=== PATIENT | male | born 1995 | race Caucasian/White ===

== ENCOUNTER 2024-06-29 19:25 | Emergency (ER) | payer OTHER | END 2024-06-29 22:15 | LOC: EMS 19:25 | DX: S00.83XA Contusion of other part of head, initial encounter (principal); W22.8XXA Striking against or struck by other objects, initial encounter; Y93.89 Activity, other specified; Y92.89 Other specified places as the place of occurrence of the external cause; Y99.8 Other external cause status | CPT/HCPCS: 99283; Z7502 ==